=== PATIENT | female | born 1935 | race Caucasian/White ===

== ENCOUNTER 2016-06-22 13:14 | Outpatient (CLI) | payer MEDICARE, OTHER | END 2016-06-22 13:15 | disposition home or self-care (01) | DX: E78.2 Mixed hyperlipidemia (principal) ==

== ENCOUNTER 2016-08-09 07:44 | Outpatient (CLI) | payer MEDICARE, OTHER | END 2016-08-09 07:45 | disposition home or self-care (01) | DX: R30.0 Dysuria (principal) ==

== ENCOUNTER 2016-09-24 08:00 | Outpatient (CLI) | payer MEDICARE, OTHER ==
[2016-09-24 13:24] LABS: BASOPHILS % (AUTO) 0.8 %; EOSINOPHILS # (AUTO) 0.1 10^3/uL (0.0-0.7); HCT - HEMATOCRIT 43.8 % (37.0-47.0); LYMPHOCYTES # (AUTO) 1.2 10^3/uL (1.5-3.5); LYMPHOCYTES % (AUTO) 33.6 %; MEAN CORPUSCULAR HEMOGLOBIN 31.5 pg (27.0-31.0); MEAN CORPUSCULAR HGB CONC 34.3 g/dL (32.0-36.0); MEAN CORPUSCULAR VOLUME 91.6 fL (81.0-99.0); MEAN PLATELET VOLUME 8.8 fL (7.9-10.8); MONOCYTES # (AUTO) 0.4 10^3/uL (0.0-1.0); MONOCYTES % (AUTO) 10.8 %; NEUTROPHILS # (AUTO) 1.8 10^3/uL (1.5-6.6); NEUTROPHILS % (AUTO) 51.8 %; RED BLOOD COUNT 4.78 10^6/uL (4.20-5.40); RED CELL DISTRIBUTION WIDTH 13.9 % (12.0-15.0); UNCORRECTED WHITE BLOOD COUNT 3.5 x10^3/uL; WHITE BLOOD COUNT 3.5 x10^3/uL (4.8-10.8)
[2016-09-24 13:48] LABS: ALBUMIN/GLOBULIN RATIO 1.5 (1.0-2.2); BILIRUBIN,TOTAL 1.3 mg/dL (0.2-1.0); CALCIUM 9.6 mg/dL (8.5-10.3); CREATININE 0.7 mg/dL (0.4-1.0); MAGNESIUM 2.1 mg/dL (1.7-2.8); PHOSPHORUS 3.4 mg/dL (2.5-4.6)
== END 2016-09-24 23:59 ==
LOC: LAB.R 08:00
PROVIDERS: ATTEND Internal Medicine
DX: R20.2 Paresthesia of skin (principal); R25.2 Cramp and spasm
CPT/HCPCS: 80053; 83735; 84100; 85025

== ENCOUNTER 2016-10-12 10:59 | Outpatient (CLI) | payer MEDICARE, OTHER ==
--- NOTE | 2016-10-12 15:03 | XRAY Report ---
THREE-VIEW LUMBAR SPINE: 10/12/2016 CLINICAL INDICATION: Back pain for 1 week. FINDINGS: Frontal and lateral views of the lumbar spine demonstrate degenerative disk and facet dise ase, with approximately 8 mm anterolisthesis of L4 on L5. There is no evidence of compression fractu re. Vascular calcifications are noted. IMPRESSION: DEGENERATIVE CHANGES, WITH DEGENERATIVE ANTEROLISTHESIS OF L4 ON L5. JOB #: [id number] EXT JOB #:[id number]
== END 2016-10-12 11:00 | disposition home or self-care (01) ==
LOC: DI 10:59
PROVIDERS: ATTEND Internal Medicine
DX: M51.36 Other intervertebral disc degeneration, lumbar region (principal); M43.16 Spondylolisthesis, lumbar region
CPT/HCPCS: 72100

== ENCOUNTER 2016-12-16 10:32 | Outpatient (CLI) | payer MEDICARE, OTHER ==
[2016-12-16 18:51] LABS: THYROID STIMULATING HORMONE 0.51 uIU/mL (0.34-5.60)
== END 2016-12-16 10:33 | disposition home or self-care (01) ==
LOC: LAB.F 10:32
PROVIDERS: ATTEND Internal Medicine
DX: Z79.899 Other long term (current) drug therapy (principal)
CPT/HCPCS: 36415; 84436; 84443; 84480

== ENCOUNTER 2017-11-10 10:25 | Outpatient (CLI) | payer MEDICARE, OTHER ==
[2017-11-10 13:14] LABS: BASOPHILS # (AUTO) 0.1 10^3/uL (0.0-0.1); BASOPHILS % (AUTO) 1.6 %; EOSINOPHILS # (AUTO) 0.1 10^3/uL (0.0-0.7); EOSINOPHILS % (AUTO) 2.2 %; HGB - HEMOGLOBIN 15.2 g/dL (12.0-16.0); LYMPHOCYTES # (AUTO) 1.1 10^3/uL (1.5-3.5); LYMPHOCYTES % (AUTO) 32.2 %; MEAN CORPUSCULAR HEMOGLOBIN 32.3 pg (27.0-31.0); MEAN CORPUSCULAR HGB CONC 33.7 g/dL (32.0-36.0); MEAN CORPUSCULAR VOLUME 95.6 fL (81.0-99.0); MEAN PLATELET VOLUME 9.2 fL (7.9-10.8); MONOCYTES # (AUTO) 0.3 10^3/uL (0.0-1.0); MONOCYTES % (AUTO) 8.2 %; NEUTROPHILS # (AUTO) 1.9 10^3/uL (1.5-6.6); NEUTROPHILS % (AUTO) 55.8 %; PLT - PLATELET COUNT 190 10^3/uL (130-450); RED BLOOD COUNT 4.71 10^6/uL (4.20-5.40); RED CELL DISTRIBUTION WIDTH 13.4 % (12.0-15.0); WHITE BLOOD COUNT 3.4 x10^3/uL (4.8-10.8)
[2017-11-10 13:49] LABS: ALBUMIN 4.4 g/dL (3.2-5.5); ALBUMIN/GLOBULIN RATIO 1.3 (1.0-2.2); ALKALINE PHOSPHATASE 69 IU/L (42-121); ALT ALANINE AMINOTRANSFERASE 16 IU/L (10-60); AST ASPARTATE AMINOTRANSFERASE 20 IU/L (10-42); BILIRUBIN,TOTAL 1.7 mg/dL (0.2-1.0); BUN - BLOOD UREA NITROGEN 16 mg/dL (6-20); CALCIUM 9.7 mg/dL (8.5-10.3); CARBON DIOXIDE - CO2 28 mmol/L (21-32); CHLORIDE 101 mmol/L (101-111); CHOLESTEROL 230 mg/dL; CREATININE 0.8 mg/dL (0.4-1.0); GFR - MDRD 69 (>89); GLUCOSE 90 mg/dL (70-100); HDL CHOLESTEROL 76 mg/dL; SODIUM 140 mmol/L (135-145); TOTAL PROTEIN 7.7 g/dL (6.7-8.2)
[2017-11-10 14:11] LABS: LDL CHOLESTEROL,DIRECT 132 mg/dL; LDLD/HDL RATIO 1.7 (<4.4)
== END 2017-11-10 10:26 | disposition home or self-care (01) ==
LOC: LAB.R 10:25
PROVIDERS: ATTEND Internal Medicine
DX: Z79.899 Other long term (current) drug therapy (principal); E78.5 Hyperlipidemia, unspecified; M85.80 Other specified disorders of bone density and structure, unspecified site; I10 Essential (primary) hypertension
CPT/HCPCS: 80053; 80061; 83721; 84443; 85025

== ENCOUNTER 2018-03-22 16:55 | Emergency (ER) | payer MEDICARE, OTHER ==
--- NOTE | 2018-03-22 17:08 | ED Physician Documentation ---
PD HPI Fall - Stated complaint Stated Complaint: GLF - History obtained from History obtained from: Patient - History of Present Illness Mechanism of injury: Tripped, Slipped Fall distance: Standing position Where injury occurred: Other (outsided on the ice) Injury(ies) location: Head, Neck, Chest, Abdomen, Back Severity Comments: moderate Quality of pain: Pain, Throbbing Associated symptoms: No: LOC, AMS, Nasal drainage, Weakness, Paresthesias, Dyspnea Symptoms improve with: Nothing Worsens with: Movement, Palpation Contributing factors: No: Intoxicated Similar symptoms before: No diagnosis Recently seen: Not recently seen Review of Systems Constitutional: denies: Fever Eyes: denies: Discharge Nose: denies: Congestion Throat: denies: Sore throat Cardiac: denies: Chest pain / pressure Respiratory: denies: Cough GI: reports: Abdominal Pain : denies: Dysuria Skin: reports: Abrasion (s) Musculoskeletal: reports: Back pain Neurologic: denies: Generalized weakness, Syncope PD PAST MEDICAL HISTORY - Past Medical History Cardiovascular: Hypertension Respiratory: None Endocrine/Autoimmune: None GI: GERD : None HEENT: Macular degeneration Psych: None Musculoskeletal: None Derm: None - Past Surgical History 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, 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 - Present Medications Home Medications: Ambulatory Orders Medication Instructions Recorded Confirmed Atorvastatin [Lipitor] 0 mg DAILY 03/23/16 04/01/16 Amitriptyline HCl 10 mg PO QPM 03/24/16 04/01/16 Hydrochlorothiazide 25 mg PO DAILY 03/24/16 04/01/16 Losartan Potassium 50 mg PO DAILY 03/24/16 04/01/16 Omeprazole [PriLOSEC] 20 mg PO DAILY 03/24/16 04/01/16 Potassium Chloride 10 meq PO BID 03/24/16 04/01/16 Pravastatin Sodium 20 mg PO QPM 03/24/16 04/01/16 Verapamil HCl [Verapamil ER] 120 mg PO BID 03/24/16 04/01/16 Cephalexin [Keflex] 500 mg PO QID #20 capsule 03/25/16 04/01/16 fentaNYL 12 MCG PATCH [Duragesic 1 patch TOP Q3D #7 patch 03/25/16 04/01/16 12mcg patch] Amoxicillin/Potassium Clav 1 each PO BID #28 tablet 04/01/16 [Augmentin 875-125 Tablet] Ondansetron HCl [Zofran] 4 mg 04/01/16 Oxycodone HCl/Acetaminophen 1 each PO Q4HR PRN #20 tablet 04/01/16 [Percocet 5-325 mg Tablet] carBAMazepine [Carbamazepine ER] 200 mg 04/01/16 Docusate Sodium [Dulcolax Stool 100 mg PO DAILY PRN #30 capsule 03/22/18 Softener] Hydrocodone/Acetaminophen 1 - 2 each PO Q6H PRN #14 tablet 03/22/18 [Hydrocodon-Acetaminophen 5-325] Ondansetron HCl [Zofran] 4 mg PO Q6HR PRN #30 tablet 03/22/18 - Allergies Allergies/Adverse Reactions: Allergies Allergy/AdvReac Type Severity Reaction Status Date / Time hydromorphone HCl * Allergy Hives Verified 03/22/18 17:14 [From Dilaudid] ibuprofen [From Advil] Allergy Hives Verified 03/22/18 17:14 Iodinated Contrast- Oral and Allergy Hives Verified 03/22/18 17:14 IV Dye [Iodinated Contrast Media - IV Dye] naproxen sodium * Allergy Hives Verified 03/22/18 17:14 [From Aleve] - Social History Does the pt smoke?: No Smoking Status: Never smoker Does the pt drink ETOH?: No Does the pt have substance abuse?: No - Immunizations Immunizations are current?: Yes PD ED PE NORMAL - General General: Alert and oriented X 3, No acute distress - HEENT HEENT: PERRL, EOMI. No: Atraumatic (The patient has tenderness on the right scalp, no laceration or significant hematoma) - Neck Neck: No: No bony TTP (Tenderness) - Cardiac Cardiac: RRR, Strong equal pulses - Respiratory Respiratory: No respiratory distress - Abdomen Abdomen: Soft, Non distended. 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, No motor deficit, Normal speech - Psych Psych: Normal mood PD ED PE EXPANDED - Back Back visual: 1 - bruising, swelling, tenderness Results - Vitals Vitals: Vital Signs - 24 hr 03/22/18 03/22/18 03/22/18 16:56 20:42 22:50 Temperature 36.4 C L 37.9 C H Heart Rate 77 73 79 Respiratory 18 16 16 Rate Blood Pressure 220/77 H 146/66 H 177/90 H O2 Saturation 96 96 96 Oxygen O2 Source Room air - Labs Labs: Laboratory Tests 03/22/18 03/22/18 03/22/18 17:37 17:37 18:19 WBC 5.1 RBC 4.68 Hgb 15.0 Hct 44.6 MCV 95.3 MCH 32.1 H MCHC 33.7 RDW 13.8 Plt Count 180 MPV 8.8 Neut # (Auto) 3.3 Lymph # (Auto) 1.3 L Edgar # (Auto) 0.4 Eos # (Auto) 0.1 Baso # (Auto) 0.0 Absolute Nucleated RBC 0.00 Nucleated RBC % 0.0 Sodium 140 Potassium 3.5 Chloride 103 Carbon Dioxide 27 Anion Gap 10.0 BUN 13 Creatinine 0.7 Estimated GFR (MDRD) 80 L Glucose 111 H Calcium 9.0 Total Bilirubin 1.0 AST 19 ALT 17 Alkaline Phosphatase 83 Total Protein 7.1 Albumin 4.4 Globulin 2.7 Albumin/Globulin Ratio 1.6 Lipase 30 Urine Color YELLOW Urine Clarity CLEAR Urine pH 6.5 Ur Specific [place] 1.020 Urine Protein NEGATIVE Urine Glucose (UA) NEGATIVE Urine Ketones NEGATIVE Urine Occult Blood NEGATIVE Urine Nitrite NEGATIVE Urine Bilirubin NEGATIVE Urine Urobilinogen 0.2 (NORMAL) Ur Leukocyte Esterase SMALL H Urine RBC 0-5 Urine WBC 6-10 H Ur Squamous Epith Cells FEW Squamous Urine Bacteria Few Ur Microscopic Review INDICATED Urine Culture Comments INDICATED - Rads (name of study) CT head/neck Radiology: Final report received (IMPRESSION: 1. Sinus mucosal disease. 2. Generalized age-related cortical atrophic changes without evidence of acute intracranial abnormality. IMPRESSION: 1. No acute fracture. 2 mm of C4 on C5 anterolisthesis likely degenerative in origin. 2. No paraspinal hematoma.3. Multilevel degenerative disk and facet arthropathy. See above. ), See rad report CT Chest/Abd/Pelvis Radiology: Final report received, See rad report (IMPRESSION: 1. No acute solid organ or bowel injury. No free air. No free fluid. 2. Displaced right posterior medial 10th, 11th and 12th rib fractures ) PD MEDICAL DECISION MAKING - ED course ED course: On-call general surgery was called to come evaluate the patient for admission to the hospital. Dr. Lipscomb who reviewed the patient's workup, Including the CT findings and came and evaluated the patient in the emergency department. The patient refused admission to the hospital and would prefer to attempt outpatient management. The patient is of sound mind and capable of making his decision. She understands the risk of worsening. I discussed with her warning signs and recommended that she return to the emergency department immediately [place] point for reevaluation. Departure - Departure Disposition: 01 Home, Self Care Clinical Impression: Flank pain, acute, Hemothorax, Atelectasis of both lungs Chest wall contusion Qualifiers: Encounter type: initial encounter Laterality: unspecified laterality Qualified Code(s): S20.219A - Contusion of unspecified front wall of thorax, initial encounter Ribs, multiple fractures Qualifiers: Encounter type: initial encounter Fracture type: closed Laterality: unspecified laterality Qualified Code(s): S22.49XA - Multiple fractures of ribs, unspecified side, initial encounter for closed fracture Closed head injury Qualifiers: Encounter type: initial encounter Qualified Code(s): S09.90XA - Unspecified injury of head, initial encounter Fall Qualifiers: Encounter type: initial encounter Qualified Code(s): W19.XXXA - Unspecified fall, initial encounter Instructions: ED Abdominal Pain Unkn Cause, ED Contusion Soft Tissue, ED Fx Rib, ED Head Injury Closed Ch, ED Contusion Chest Wall Ch Follow-Up: Micah Diaz MD [Primary Care Provider] - Jose Francisco Lipscomb MD [Provider Admit Priv/Credential] - Within 1 week Prescriptions: Ondansetron HCl [Zofran] 4 mg PO Q6HR PRN #30 tablet PRN Reason: Nausea / Vomiting Docusate Sodium [Dulcolax Stool Softener] 100 mg PO DAILY PRN #30 capsule PRN Reason: Constipation Hydrocodone/Acetaminophen [Hydrocodon-Acetaminophen 5-325] 1 - 2 each PO Q6H PRN #14 tablet PRN Reason: pain Comments: Please return back to the emergency department immediately for any worsening or any concerns.
[2018-03-22] MEDS ORDERED: IOVERSOL 320 100 ML VIAL IVP ONE ×2 (17:25→20:23)
[2018-03-22 17:45] LABS: BASOPHILS % (AUTO) 0.8 %; EOSINOPHILS # (AUTO) 0.1 10^3/uL (0.0-0.7); LYMPHOCYTES # (AUTO) 1.3 10^3/uL (1.5-3.5); LYMPHOCYTES % (AUTO) 24.6 %; MEAN CORPUSCULAR HEMOGLOBIN 32.1 pg (27.0-31.0); MEAN CORPUSCULAR HGB CONC 33.7 g/dL (32.0-36.0); MEAN CORPUSCULAR VOLUME 95.3 fL (81.0-99.0); MEAN PLATELET VOLUME 8.8 fL (7.9-10.8); MONOCYTES # (AUTO) 0.4 10^3/uL (0.0-1.0); MONOCYTES % (AUTO) 7.7 %; NEUTROPHILS # (AUTO) 3.3 10^3/uL (1.5-6.6); NEUTROPHILS % (AUTO) 64.9 %; PLT - PLATELET COUNT 180 10^3/uL (130-450); RED BLOOD COUNT 4.68 10^6/uL (4.20-5.40); RED CELL DISTRIBUTION WIDTH 13.8 % (12.0-15.0); WHITE BLOOD COUNT 5.1 x10^3/uL (4.8-10.8)
[2018-03-22 17:58] LABS: ALBUMIN 4.4 g/dL (3.2-5.5); ALBUMIN/GLOBULIN RATIO 1.6 (1.0-2.2); CREATININE 0.7 mg/dL (0.4-1.0); TOTAL PROTEIN 7.1 g/dL (6.7-8.2)
[2018-03-22 18:28] LABS: BILIRUBIN,URINE NEGATIVE (NEGATIVE); GLUCOSE, URINE (UA) NEGATIVE (NEGATIVE); KETONES,URINE (UA) NEGATIVE (NEGATIVE); LEUKOCYTE ESTERASE, URINE SMALL (NEGATIVE); NITRITE,URINE NEGATIVE (NEGATIVE); OCCULT BLOOD,URINE NEGATIVE (NEGATIVE); PH,URINE 6.5 PH (5.0-7.5); PROTEIN,URINE NEGATIVE (NEGATIVE); UROBILINOGEN,URINE 0.2 (NORMAL) E.U./dL (NORMAL)
[2018-03-22 18:30] LABS: CLARITY,URINE CLEAR (CLEAR)
[2018-03-22 18:36] LABS: BACTERIA,URINE Few /HPF (None Seen); RBC,URINE 0-5 /HPF (0-5); SQUAMOUS EPITHELIAL CELL,UR FEW Squamous (<= Few)
[2018-03-22] MEDS ORDERED: fentaNYL 100 MCG/2 ML VIAL IVP STA (19:05)
[2018-03-22] MEDS ORDERED: diphenhydrAMINE INJ 50 MG/ML VIAL IVP STA (19:05)
--- NOTE | 2018-03-22 20:17 | CT Report ---
Reason: Fall, head injury Procedure Date: 03/22/2018 Accession Number: [id number] / [id number] Procedure: CT - Head W/O CPT Code: FULL RESULT: EXAM: CT HEAD EXAM DATE: 03/22/2018 07:17 PM. CLINICAL HISTORY: Fall, head injury. COMPARISON: HEAD W/O 03/23/2016 3:14 PM BRAIN W/WO 04/01/2016 9:09 AM. TECHNIQUE: Multiaxial CT images were obtained from the foramen magnum to the vertex. Reformats: Sagittal and coronal. IV contrast: None. In accordance with CT protocol optimization, one or more of the following dose reduction techniques were utilized for this exam: automated exposure control, adjustment of mA and/or KV based on patient size, or use of iterative reconstructive technique. FINDINGS: Parenchyma: No intraparenchymal hemorrhage. No evidence of mass, midline shift, or CT findings of acute infarction. Morales-white differentiation is distinct. Diffuse chronic microangiopathic white matter changes are evident. Extraaxial Spaces: Normal for age. No subdural or epidural collections identified. Ventricles: The ventricles and cortical sulci are enlarged, consistent with age-related tissue loss. Sinuses and orbits: Right maxillary sinus polyp or mucus retention cyst is noted. Bilateral maxillary and ethmoid sinus mucosal thickening. Otherwise, the remaining paranasal sinuses, orbits, and mastoids show no significant abnormality. Bones: No evidence of fracture or calvarial defect. Other: None. IMPRESSION: 1. Sinus mucosal disease. 2. Generalized age-related cortical atrophic changes without evidence of acute intracranial abnormality. RADIA
--- NOTE | 2018-03-22 20:26 | CT Report ---
Reason: [place], Large contusion over flank and lower chest Procedure Date: 03/22/2018 Accession Number: [id number] / [id number] Procedure: CT - Abdomen/Pelvis W/ CPT Code: FULL RESULT: EXAM: CT ABDOMEN AND PELVIS WITH CONTRAST. EXAM DATE: 03/22/2018 07:24 PM. CLINICAL HISTORY: Trauma, large contusion over flank and lower chest. COMPARISONS: 03/23/2016. TECHNIQUE: Routine helical CT imaging was performed through the abdomen and pelvis. IV contrast: 90 mL OPTIRAY 320. Enteric contrast: No. Reconstructions: Coronal and sagittal. In accordance with CT protocol optimization, one or more of the following dose reduction techniques were utilized for this exam: automated exposure control, adjustment of mA and/or KV based on patient size, or use of iterative reconstructive technique. FINDINGS: Lung Bases: Bibasilar scar/atelectasis. Right lower lobe bronchiectasis. Included portions of the heart are unremarkable. Small hiatal hernia. There is small right pleural effusion and extrapleural soft tissue thickening. Liver: Mild fatty liver. No hepatic lesions. No hepatic laceration. Gallbladder/Bile Ducts: Unremarkable. Spleen: Spleen is normal in size and contour. No evidence for splenic laceration. Pancreas: Normal. Adrenal Glands: Normal. Kidneys: Kidneys enhance symmetrically. No hydronephrosis or nephrolithiasis. Extrarenal pelvis on the left. No renal laceration. Peritoneal Cavity/Bowel: Stomach is mildly distended. No small bowel obstruction or small bowel wall thickening. No free air. No interloop free fluid. Moderate to large volume of stool in the colon. Diverticula are seen in the distal colon. Diverticulitis. Appendix not distinctly seen. Pelvic Organs: Urinary bladder mildly distended and unremarkable. No pelvic adenopathy. No pelvic free fluid. Vasculature: Vascular calcifications. No aneurysm. Bones: Right posterior medial 10th, 11th and 12th displaced rib fractures. Other: Subcutaneous edema along the right posterior inferior hemithorax and right flank. Degenerative changes lower thoracic and lumbar spine. Grade 1 anterolisthesis of L4 and L5. Lumbar facet arthropathy. Degenerative changes of both hip joints. IMPRESSION: 1. No acute solid organ or bowel injury. No free air. No free fluid. 2. Displaced right posterior medial 10th, 11th and 12th rib fractures with adjacent very small right pleural effusion and extrapleural hematoma and soft tissue thickening. Overlying subcutaneous edema along the right flank. 3. Moderate to large volume of stool in the colon. RADIA
--- NOTE | 2018-03-22 20:40 | CT Report ---
Reason: Fall, head injury Procedure Date: 03/22/2018 Accession Number: [id number] / [id number] Procedure: CT - Cervical Spine W/O CPT Code: FULL RESULT: EXAM: CT CERVICAL SPINE WITHOUT CONTRAST WITHOUT CONTRAST. DATE: 03/22/2018 07:17 PM. HISTORY: Fall, head injury. COMPARISONS: Cervical spine without 03/23/2016 3:18 PM. TECHNIQUE: Thin-section axial images were acquired of the cervical spine without contrast. Post-processing: Coronal and sagittal reformats. Other: None. In accordance with CT protocol optimization, one or more of the following dose reduction techniques were utilized for this exam: automated exposure control, adjustment of mA and/or KV based on patient size, or use of iterative reconstructive technique. FINDINGS: Alignment: Gentle convex to the right curvature of the lower cervical spine. 2 mm of C4 on C5 anterolisthesis, likely degenerative in origin. Loss of the normal cervical lordosis is present. Bones: No fracture or bone lesion. Interspace Levels/Facets: C1-C2: Moderate narrowing between the C1 ring and dens articulation. No significant central canal stenosis. Mild narrowing at the C1-2 lateral mass articulation. C2-C3: Moderate right facet arthropathy. No significant central canal or foraminal stenosis. C3-C4: Moderate right and mild left facet arthropathy. Mild disk narrowing. No significant central canal or foraminal stenosis. C4-C5: Mild disk narrowing. Mild to moderate left and mild right facet arthropathy. No significant central canal or foraminal stenosis. C5-C6: Moderate disk narrowing. Prominent disk osteophyte complex and uncovertebral joint hypertrophy results in moderate right and mild left foraminal stenosis. No significant facet arthropathy or central canal stenosis. C6-C7: Mild to moderate disk narrowing with prominent anterior osteophytes. No significant facet arthropathy or central canal or foraminal stenosis. C7-T1: Mild disk narrowing. No significant central canal or foraminal stenosis. Musculature: Normal. No fatty atrophy. Other: The paravertebral and prevertebral soft tissues are unremarkable. The lung apices are clear. IMPRESSION: 1. No acute fracture. 2 mm of C4 on C5 anterolisthesis likely degenerative in origin. 2. No paraspinal hematoma. 3. Multilevel degenerative disk and facet arthropathy. See above. RADIA
--- NOTE | 2018-03-22 21:04 | CT Report ---
Reason: [place], Large contusion over flank and lower chest Procedure Date: 03/22/2018 Accession Number: [id number] / [id number] Procedure: CT - Chest W/ CPT Code: FULL RESULT: EXAM: CT CHEST EXAM DATE: 03/22/2018 07:24 PM. CLINICAL HISTORY: Trauma, Large contusion over flank and lower chest. COMPARISONS: ABDOMEN/PELVIS W/O 03/23/2016 3:21 PM. TECHNIQUE: Routine helical CT imaging was performed through the chest. IV contrast: 90 mL Optiray 320. Reconstructions: Coronal and sagittal. In accordance with CT protocol optimization, one or more of the following dose reduction techniques were utilized for this exam: automated exposure control, adjustment of mA and/or KV based on patient size, or use of iterative reconstructive technique. FINDINGS: Mediastinum: No thoracic aortic aneurysm, dissection or laceration. No mediastinal gas. Coronary artery calcification. Normal heart size. No mediastinal or hilar lymphadenopathy. Small hiatal hernia. Lungs: Mild bilateral lower lobe posterior airspace disease most suggestive for atelectasis. Lung contusion not excluded. No pneumothorax. Acute right posterior 10th and 11th rib fractures. The right posterior 11th rib fracture is comminuted and moderately displaced. Mildly displaced right posterior 11th rib fracture. Adjacent small hematoma with small right hemothorax. No pneumothorax. Transitional T12 vertebra. Old healed sternal fracture. IMPRESSION: 1. Acute right posterior 10th and 11th rib fractures. The right posterior 11th rib fracture is comminuted and moderately displaced. Mildly displaced right posterior 11th rib fracture. Adjacent small hematoma with small right hemothorax. No pneumothorax. 2. Mild bilateral lower lobe posterior airspace disease most suggestive for atelectasis. Lung contusion not excluded. 3. Small hiatal hernia. RADIA
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
[2018-03-22] MEDS ORDERED: HYDROcod/ACET 5/325 Prepack 4 PO STA (22:15)
[2018-03-22 22:51] VITALS: BP 177/90
== END 2018-03-22 22:51 | disposition home or self-care (01) ==
LOC: EDUNIT# → ED 16:55
DX: S22.41XA Multiple fractures of ribs, right side, initial encounter for closed fracture (principal); S20.229A Contusion of unspecified back wall of thorax, initial encounter; S09.90XA Unspecified injury of head, initial encounter; W00.0XXA Fall on same level due to ice and snow, initial encounter; W22.8XXA Striking against or struck by other objects, initial encounter; I10 Essential (primary) hypertension; R10.9 Unspecified abdominal pain; J94.2 Hemothorax; J98.11 Atelectasis; Y99.8 Other external cause status
CPT/HCPCS: 36415; 70450; 71260; 72125; 74177; 80053; 81001; 83690; 85025; 87086; 96374; 99283; 99284; J1200; Q9967; 81003

== ENCOUNTER 2018-03-24 12:20 | Outpatient (CLI) | payer MEDICARE, OTHER | END 2018-03-24 12:21 | disposition home or self-care (01) | LOC: DI 12:20 | PROVIDERS: ATTEND Surgery | DX: Z53.9 Procedure and treatment not carried out, unspecified reason (principal) ==

== ENCOUNTER 2018-03-28 12:31 | Outpatient (CLI) | payer MEDICARE, OTHER ==
--- NOTE | 2018-03-28 13:20 | XRAY Report ---
Reason: RT BROKEN RIBS 10, 11, 12 Procedure Date: 03/28/2018 Accession Number: [id number] / [id number] Procedure: XR - Chest 2 View X-Ray CPT Code: 76996 FULL RESULT: EXAM: Chest 2 View X-Ray DATE: 03/28/2018 12:53 PM CLINICAL HISTORY: RT BROKEN RIBS 10, 11, 12 COMPARISON: CT chest abdomen pelvis 03/22/2018. TECHNIQUE: 2 views. FINDINGS: Lungs/Pleura: There is a small right pleural effusion with no airspace opacifications in the aerated lung. No left pleural effusion and no sizable pneumothorax. Mediastinum: Heart and mediastinal contours are stable with aortic arch calcifications.. Other: Known right-sided rib fractures are partially visualized. IMPRESSION: Small right pleural effusion, felt to likely be related to the trauma. No pneumothorax or visualized airspace disease. RADIA
== END 2018-03-28 12:32 | disposition home or self-care (01) ==
LOC: DI 12:31
PROVIDERS: ATTEND Surgery
DX: S22.41XA Multiple fractures of ribs, right side, initial encounter for closed fracture (principal); J90 Pleural effusion, not elsewhere classified
CPT/HCPCS: 71046

== ENCOUNTER 2018-05-11 10:07 | Outpatient (CLI) | payer MEDICARE, OTHER ==
--- NOTE | 2018-05-12 09:19 | Mammography Report ---
Reason: SCREENING MAMMO Procedure Date: 05/11/2018 Accession Number: [id number] / [id number] Procedure: [facility] - Screening Mammo w/[place] CPT Code: FULL RESULT: EXAM: Screening Mammo w/[place] DATE: 05/11/2018 10:34 AM CLINICAL HISTORY: Screening encounter. History of 20 year hormone therapy. History of multiple needle biopsies as well as a surgical biopsy performed on the right breast. TECHNIQUE: Bilateral CC and MLO views were obtained. COMPARISON: 01/30/2015 through 06/01/2010. FINDINGS: The breasts demonstrate scattered fibroglandular densities bilaterally. There are typically benign coarse and vascular calcifications. Postbiopsy changes are stable. No suspicious masses, clustered microcalcifications, or regions of architectural distortion are identified. IMPRESSION: Benign findings RECOMMENDATION: Routine annual screening unless otherwise clinically indicated. BIRADS CATEGORY 2: Benign findings STANDARD QUALIFYING STATEMENTS: 1. This examination was not reviewed with the aid of Computer-Aided Detection (CAD). 2. A negative or benign imaging report should not preclude biopsy if clinically suspicious findings are present. 3. Dense breasts may obscure an underlying neoplasm. 4. This examination was reviewed with the aid of 3D breast imaging (tomosynthesis).
== END 2018-05-11 10:08 | disposition home or self-care (01) ==
LOC: DI 10:07
PROVIDERS: ATTEND Internal Medicine
DX: Z12.31 Encounter for screening mammogram for malignant neoplasm of breast (principal)
CPT/HCPCS: 77063; 77067

== ENCOUNTER 2018-12-20 16:51 | Outpatient (CLI) | payer MEDICARE, OTHER ==
[2018-12-20 17:35] LABS: ALBUMIN 4.7 g/dL (3.2-5.5); ALBUMIN/GLOBULIN RATIO 1.4 (1.0-2.2); BILIRUBIN,TOTAL 1.2 mg/dL (0.2-1.0); CALCIUM 9.8 mg/dL (8.5-10.3); CREATININE 0.7 mg/dL (0.4-1.0)
[2018-12-20 17:38] LABS: BASOPHILS # (AUTO) 0.1 10^3/uL (0.0-0.1); BASOPHILS % (AUTO) 1.3 %; EOSINOPHILS # (AUTO) 0.2 10^3/uL (0.0-0.7); EOSINOPHILS % (AUTO) 3.8 %; HGB - HEMOGLOBIN 15.5 g/dL (12.0-16.0); LYMPHOCYTES # (AUTO) 1.6 10^3/uL (1.5-3.5); MEAN CORPUSCULAR HGB CONC 34.1 g/dL (32.0-36.0); MEAN PLATELET VOLUME 10.8 fL (7.9-10.8); MONOCYTES # (AUTO) 0.4 10^3/uL (0.0-1.0); MONOCYTES % (AUTO) 8.3 %; NEUTROPHILS # (AUTO) 2.3 10^3/uL (1.5-6.6); NEUTROPHILS % (AUTO) 51.4 %; PLT - PLATELET COUNT 205 10^3/uL (130-450); RED BLOOD COUNT 4.84 10^6/uL (4.20-5.40); RED CELL DISTRIBUTION WIDTH 12.9 % (12.0-15.0); WHITE BLOOD COUNT 4.5 x10^3/uL (4.8-10.8)
[2018-12-20 18:08] LABS: THYROID STIMULATING HORMONE 1.06 uIU/mL (0.34-5.60)
[2018-12-20 18:10] LABS: FREE T4 (FREE THYROXINE) 0.94 ng/dL (0.58-1.64)
== END 2018-12-20 16:52 | disposition home or self-care (01) ==
LOC: LAB 16:51
PROVIDERS: ATTEND Family Medicine
DX: I10 Essential (primary) hypertension (principal); R53.1 Weakness
CPT/HCPCS: 36415; 80053; 84439; 84443; 84481; 85025

== ENCOUNTER 2019-05-08 15:20 | Outpatient (CLI) | payer MEDICARE, OTHER ==
[2019-05-08 15:35] LABS: BASOPHILS # (AUTO) 0.1 10^3/uL (0.0-0.1); BASOPHILS % (AUTO) 0.8 %; EOSINOPHILS # (AUTO) 0.2 10^3/uL (0.0-0.7); EOSINOPHILS % (AUTO) 3.6 %; LYMPHOCYTES # (AUTO) 1.6 10^3/uL (1.5-3.5); LYMPHOCYTES % (AUTO) 24.8 %; MEAN CORPUSCULAR HEMOGLOBIN 30.8 pg (27.0-31.0); MEAN CORPUSCULAR HGB CONC 32.8 g/dL (32.0-36.0); MEAN PLATELET VOLUME 10.5 fL (7.9-10.8); MONOCYTES # (AUTO) 0.4 10^3/uL (0.0-1.0); MONOCYTES % (AUTO) 6.1 %; NEUTROPHILS # (AUTO) 4.3 10^3/uL (1.5-6.6); NEUTROPHILS % (AUTO) 64.4 %; PLT - PLATELET COUNT 200 10^3/uL (130-450); RED BLOOD COUNT 4.87 10^6/uL (4.20-5.40); RED CELL DISTRIBUTION WIDTH 13.2 % (12.0-15.0); WHITE BLOOD COUNT 6.6 x10^3/uL (4.8-10.8)
[2019-05-08 15:51] LABS: CALCIUM 9.5 mg/dL (8.5-10.3); CREATININE 0.8 mg/dL (0.4-1.0); MAGNESIUM 2.2 mg/dL (1.7-2.8)
== END 2019-05-08 15:21 | disposition home or self-care (01) ==
LOC: LAB 15:20
PROVIDERS: ATTEND Family Medicine
DX: E03.9 Hypothyroidism, unspecified (principal); F41.9 Anxiety disorder, unspecified; K21.9 Gastro-esophageal reflux disease without esophagitis; R53.1 Weakness; E78.5 Hyperlipidemia, unspecified
CPT/HCPCS: 36415; 80048; 83735; 85025

== ENCOUNTER 2019-06-07 16:09 | Outpatient (CLI) | payer MEDICARE, OTHER ==
[2019-06-07 17:08] LABS: THYROID STIMULATING HORMONE 0.55 uIU/mL (0.34-5.60)
[2019-06-07 17:10] LABS: FREE T4 (FREE THYROXINE) 1.06 ng/dL (0.58-1.64)
== END 2019-06-07 16:10 | disposition home or self-care (01) ==
LOC: LAB 16:09
PROVIDERS: ATTEND Family Medicine
DX: E03.9 Hypothyroidism, unspecified (principal)
CPT/HCPCS: 36415; 84439; 84443; 84481

== ENCOUNTER 2019-08-27 14:48 | Outpatient (CLI) | payer MEDICARE, OTHER ==
--- NOTE | 2019-08-28 10:40 | XRAY Report ---
Reason: PULMONARY HYPERTENSION, FATIGUE Procedure Date: 08/27/2019 Accession Number: [id number] / [id number] Procedure: XR - Chest 2 View X-Ray CPT Code: 72993 Final Report FULL RESULT: EXAM: CHEST RADIOGRAPHY EXAM DATE: 08/27/2019 03:22 PM. CLINICAL HISTORY: Pulmonary hypertension, fatigue. COMPARISON: CHEST 2 VIEW 03/28/2018 1:05 PM. TECHNIQUE: 2 views. FINDINGS: Lungs/Pleura: No focal opacities evident. No pleural effusion. No pneumothorax. Normal volumes. Mediastinum: Heart and mediastinal contours are within normal limits. Other: None. IMPRESSION: No lung consolidations or pulmonary edema. RADIA
== END 2019-08-27 14:49 | disposition home or self-care (01) ==
LOC: DI 14:48
PROVIDERS: ATTEND Internal Medicine
DX: I27.20 Pulmonary hypertension, unspecified (principal); R53.83 Other fatigue
CPT/HCPCS: 36415; 71046; 83880

== ENCOUNTER 2019-08-27 15:28 | Outpatient (CLI) | payer MEDICARE, OTHER | END 2019-08-27 15:29 | disposition home or self-care (01) | LOC: LAB 15:28 | PROVIDERS: ATTEND Internal Medicine | DX: I27.20 Pulmonary hypertension, unspecified (principal); R53.83 Other fatigue | CPT/HCPCS: 36415; 83880 ==

== ENCOUNTER 2019-12-27 12:38 | Outpatient (CLI) | payer MEDICARE, OTHER ==
[2019-12-27 12:56] LABS: BASOPHILS # (AUTO) 0.1 10^3/uL (0.0-0.1); BASOPHILS % (AUTO) 0.9 %; EOSINOPHILS # (AUTO) 0.1 10^3/uL (0.0-0.7); EOSINOPHILS % (AUTO) 1.7 %; HGB - HEMOGLOBIN 15.1 g/dL (12.0-16.0); LYMPHOCYTES # (AUTO) 1.3 10^3/uL (1.5-3.5); LYMPHOCYTES % (AUTO) 24.5 %; MEAN CORPUSCULAR HEMOGLOBIN 32.3 pg (27.0-31.0); MEAN CORPUSCULAR HGB CONC 33.7 g/dL (32.0-36.0); MEAN CORPUSCULAR VOLUME 95.7 fL (81.0-99.0); MEAN PLATELET VOLUME 10.9 fL (7.9-10.8); MONOCYTES # (AUTO) 0.4 10^3/uL (0.0-1.0); MONOCYTES % (AUTO) 8.2 %; NEUTROPHILS # (AUTO) 3.4 10^3/uL (1.5-6.6); NEUTROPHILS % (AUTO) 64.5 %; PLT - PLATELET COUNT 193 10^3/uL (130-450); RED BLOOD COUNT 4.68 10^6/uL (4.20-5.40); RED CELL DISTRIBUTION WIDTH 12.9 % (12.0-15.0); WHITE BLOOD COUNT 5.3 x10^3/uL (4.8-10.8)
[2019-12-27 13:05] LABS: ALBUMIN 4.4 g/dL (3.2-5.5); ALBUMIN/GLOBULIN RATIO 1.5 (1.0-2.2); CREATININE 0.9 mg/dL (0.4-1.0); TOTAL PROTEIN 7.4 g/dL (6.7-8.2)
[2019-12-27 13:19] LABS: THYROID STIMULATING HORMONE 0.81 uIU/mL (0.34-5.60)
[2019-12-27 13:21] LABS: FREE T3 3.24 pg/mL (2.5-3.9); FREE T4 (FREE THYROXINE) 1.01 ng/dL (0.58-1.64)
== END 2019-12-27 12:39 | disposition home or self-care (01) ==
LOC: LAB 12:38
PROVIDERS: ATTEND Family Medicine
DX: R25.1 Tremor, unspecified (principal); F32.9 Major depressive disorder, single episode, unspecified; F41.9 Anxiety disorder, unspecified; E03.9 Hypothyroidism, unspecified
CPT/HCPCS: 36415; 80053; 84439; 84443; 84481; 85025

== ENCOUNTER 2020-07-01 08:00 | Outpatient (CLI) | payer MEDICARE, OTHER ==
[2020-07-01 18:23] LABS: BASOPHILS % (AUTO) 0.7 %; EOSINOPHILS # (AUTO) 0.1 10^3/uL (0.0-0.7); EOSINOPHILS % (AUTO) 1.5 %; HCT - HEMATOCRIT 46.5 % (37.0-47.0); HGB - HEMOGLOBIN 15.3 g/dL (12.0-16.0); LYMPHOCYTES # (AUTO) 1.3 10^3/uL (1.5-3.5); LYMPHOCYTES % (AUTO) 21.3 %; MEAN CORPUSCULAR HEMOGLOBIN 31.5 pg (27.0-31.0); MEAN CORPUSCULAR HGB CONC 32.9 g/dL (32.0-36.0); MEAN CORPUSCULAR VOLUME 95.7 fL (81.0-99.0); MEAN PLATELET VOLUME 11.5 fL (7.9-10.8); MONOCYTES # (AUTO) 0.5 10^3/uL (0.0-1.0); MONOCYTES % (AUTO) 7.7 %; NEUTROPHILS % (AUTO) 68.6 %; PLT - PLATELET COUNT 228 10^3/uL (130-450); RED BLOOD COUNT 4.86 10^6/uL (4.20-5.40); RED CELL DISTRIBUTION WIDTH 13.5 % (12.0-15.0); WHITE BLOOD COUNT 5.9 x10^3/uL (4.8-10.8)
[2020-07-01 18:33] LABS: ALBUMIN 4.8 g/dL (3.2-5.5); ALBUMIN/GLOBULIN RATIO 1.5 (1.0-2.2); BILIRUBIN,TOTAL 1.2 mg/dL (0.2-1.0); CALCIUM 9.9 mg/dL (8.5-10.3); CREATININE 0.6 mg/dL (0.4-1.0); POTASSIUM 4.1 mmol/L (3.5-5.0); TOTAL PROTEIN 7.9 g/dL (6.7-8.2)
[2020-07-01 18:48] LABS: THYROID STIMULATING HORMONE 0.6 uIU/mL (0.34-5.60)
[2020-07-01 18:49] LABS: FREE T3 3.31 pg/mL (2.5-3.9)
[2020-07-01 18:50] LABS: FREE T4 (FREE THYROXINE) 1.08 ng/dL (0.58-1.64)
== END 2020-07-01 23:59 | disposition home or self-care (01) ==
LOC: LAB.WCP 08:00
PROVIDERS: ATTEND Family Medicine
DX: R63.0 Anorexia (principal); R25.1 Tremor, unspecified; E03.9 Hypothyroidism, unspecified; K21.9 Gastro-esophageal reflux disease without esophagitis; R53.1 Weakness; I10 Essential (primary) hypertension
CPT/HCPCS: 36415; 80053; 84439; 84443; 84481; 85025